=== PATIENT | male | born 1940 | race Caucasian/White ===

== ENCOUNTER 2022-09-09 13:56 | Inpatient (IN) | payer OTHER ==
[2022-09-09 16:39] VITALS: BMI 27.2
[2022-09-09] MEDS ORDERED: Dextrose 5% in Water 1,000 ML IV PRN (17:30)
[2022-09-09] MEDS ORDERED: Ondansetron PF 4 MG/2 ML Vial IVP PRN (17:30)
[2022-09-09] MEDS ORDERED: Acetaminophen 325 MG TAB PO PRN (17:30)
[2022-09-09] MEDS ORDERED: Dextrose 50% Abboject 50 ML SYRINGE SLOW IVP PRN (17:30)
[2022-09-09] MEDS: cefTRIAXone\\ROCEPHIN 1 GM in Sodium Chloride 0.9% 100 ML IVPB SCH (18:44)
[2022-09-09 18:51] LABS: Troponin I 0.047 ng/mL (< 0.028)
[2022-09-10 04:31] LABS: #Basophils 0.1 thou/uL (0.0-0.2); #Eosinphils 0.3 thou/uL (0.0-0.7); #Lymphocytes 1.5 thou/uL (1.20-3.40); #Monocytes 0.8 thou/uL (0.11-0.59); #Neutrophils 4.8 thou/uL (1.40-6.50); %Basophils 0.9 % (0.0-1.0); %Eosinophils 3.7 % (0.0-10.0); %Lymphocytes 19.9 % (21.0-51.0); %Monocytes 10.9 % (0.0-10.0); %Neutrophils 64.5 % (42.0-75.0); Mean Corpuscular HGB CONC 32.4 g/dL (32.0-36.0); Mean Corpuscular Hemoglobin 29.9 pg (27.0-31.0); Mean Corpuscular Volume 92.2 fl (78.0-98.0); Mean Platelet Volume 9.3 fL (7.4-10.4); Platelet Count 195 10x3/uL (130-400); RBC Distribution Width 13.4 % (11.5-14.5); Red Blood Cell (RBC) Count 4.01 mill/uL (4.70-6.10); White Blood Cell (WBC) Count 7.5 10x3/uL (4.8-10.8)
[2022-09-10 05:17] LABS: Anion Gap 13 mmol/L (10-20); BUN (Urea Nitrogen) 15 mg/dL (8.4-25.7); Calc. Creatinine Clearance 80 mL/min (70-130); Calcium 8.6 mg/dL (7.8-10.44); Carbon Dioxide 25 mmol/L (23-31); Chloride 104 mmol/L (98-107); Estimated GFR 88; Glucose 256 mg/dL (83-110); Potassium 3.9 mmol/L (3.5-5.1); Sodium 138 mmol/L (136-145)
[2022-09-10] MEDS ORDERED: FLU VACC QS2022-23(65YR UP)/PF 240 MCG/0.7 ML SYRINGE IM ONE (09:00)
[2022-09-10] MEDS ORDERED: HumaLOG 300 UNITS/3 ML VIAL SC PRN (09:19)
[2022-09-10] MEDS ORDERED: Spironolactone 25 MG TAB PO SCH (13:00)
[2022-09-10] MEDS: Carvedilol 6.25 MG TAB PO SCH (18:20)
[2022-09-10] MEDS: Dronedarone HCl 400 MG TAB PO SCH (18:21)
[2022-09-10] MEDS: cefTRIAXone\\ROCEPHIN 1 GM in Sodium Chloride 0.9% 100 ML IVPB SCH (18:21)
[2022-09-10] MEDS: Mometasone 100 MCG/PUFF (1 INHALER) INH SCH (18:26)
[2022-09-10] MEDS: Insulin NPH Human Isophane 100 UNIT/ML (10 ML VIAL) SC SCH (20:21)
[2022-09-10] MEDS: metFORMIN XR 500 MG TAB PO SCH (20:21)
[2022-09-10] MEDS: Apixaban 5 MG TAB PO SCH (20:21)
[2022-09-10] MEDS ORDERED: NPH, Human Insulin Isophane 300 UNIT/3 ML VIAL SC SCH (21:00)
[2022-09-11 00:36] LABS: Magnesium 1.7 mg/dL (1.6-2.6)
[2022-09-11 04:36] LABS: #Basophils 0.1 thou/uL (0.0-0.2); #Eosinphils 0.4 thou/uL (0.0-0.7); #Lymphocytes 1.7 thou/uL (1.20-3.40); #Monocytes 0.7 thou/uL (0.11-0.59); #Neutrophils 4.4 thou/uL (1.40-6.50); %Basophils 0.9 % (0.0-1.0); %Eosinophils 4.8 % (0.0-10.0); %Lymphocytes 23.5 % (21.0-51.0); %Neutrophils 60.7 % (42.0-75.0); Hemoglobin 11.9 g/dL (14.0-18.0); Mean Corpuscular HGB CONC 32.3 g/dL (32.0-36.0); Mean Corpuscular Hemoglobin 30.3 pg (27.0-31.0); Mean Corpuscular Volume 93.9 fl (78.0-98.0); Mean Platelet Volume 9.2 fL (7.4-10.4); Platelet Count 196 10x3/uL (130-400); RBC Distribution Width 13.5 % (11.5-14.5); Red Blood Cell (RBC) Count 3.93 mill/uL (4.70-6.10); White Blood Cell (WBC) Count 7.3 10x3/uL (4.8-10.8)
[2022-09-11 05:13] LABS: Anion Gap 12 mmol/L (10-20); BUN (Urea Nitrogen) 13 mg/dL (8.4-25.7); Calc. Creatinine Clearance 88 mL/min (70-130); Calcium 8.9 mg/dL (7.8-10.44); Carbon Dioxide 25 mmol/L (23-31); Cardiac Risk 2.8 (Less than 4.5); Chloride 105 mmol/L (98-107); Cholesterol 102 mg/dl (< 200 Desired); Estimated GFR 91; Glucose 170 mg/dL (83-110); HDL Cholesterol 37 mg/dL (>60 Neg Risk); LDL Cholesterol, Calculated 55 mg/dL; Potassium 3.7 mmol/L (3.5-5.1); Sodium 138 mmol/L (136-145); Triglycerides 50 mg/dL (Less than 150)
[2022-09-11] MEDS ORDERED: Ipratropium Bromide 2.5 ml Neb NEB SCH (07:00)
[2022-09-11] MEDS: Mometasone 100 MCG/PUFF (1 INHALER) INH SCH (07:22)
[2022-09-11] MEDS ORDERED: Ipratropium Bromide 2.5 ml Neb NEB PRN (07:36)
[2022-09-11] MEDS ORDERED: Spironolactone 25 MG TAB PO SCH (08:00)
[2022-09-11] MEDS ORDERED: Atorvastatin Calcium 40 MG TAB PO SCH (09:00)
[2022-09-11] MEDS ORDERED: Clopidogrel Bisulfate 75 MG TAB PO SCH (09:00)
[2022-09-11] MEDS ORDERED: Furosemide 40 MG TAB PO SCH (09:00)
[2022-09-11] MEDS ORDERED: DULoxetine 30 MG CAP PO SCH (09:00)
[2022-09-11] MEDS ORDERED: Lisinopril 5 MG TAB PO SCH (09:00)
[2022-09-11] MEDS: Apixaban 5 MG TAB PO SCH (09:13)
[2022-09-11] MEDS: metFORMIN XR 500 MG TAB PO SCH (09:13)
[2022-09-11] MEDS: Insulin NPH Human Isophane 100 UNIT/ML (10 ML VIAL) SC SCH (09:14)
[2022-09-11] MEDS: Dronedarone HCl 400 MG TAB PO SCH (09:14)
[2022-09-11] MEDS: Carvedilol 6.25 MG TAB PO SCH (09:16)
[2022-09-11 11:35] VITALS: BP 158/78; TEMP 97.5
[2022-09-11] MEDS ORDERED: Terazosin HCl 1 MG CAP PO SCH (21:00)
== END 2022-09-11 15:41 | DRG 308 ==
LOC: 2NO 16:01 → EEVIPCON 16:01
PROVIDERS: ADMIT Internal Medicine; ATTEND Family Medicine
DX: I48.0 Paroxysmal atrial fibrillation (principal); I50.31 Acute diastolic (congestive) heart failure; N39.0 Urinary tract infection, site not specified; I11.0 Hypertensive heart disease with heart failure; E11.649 Type 2 diabetes mellitus with hypoglycemia without coma; I25.10 Atherosclerotic heart disease of native coronary artery without angina pectoris; G47.33 Obstructive sleep apnea (adult) (pediatric); E78.5 Hyperlipidemia, unspecified; R77.8 Other specified abnormalities of plasma proteins; Z98.890 Other specified postprocedural states; Z86.73 Personal history of transient ischemic attack (TIA), and cerebral infarction without residual deficits; Z95.5 Presence of coronary angioplasty implant and graft; Z79.51 Long term (current) use of inhaled steroids; Z79.899 Other long term (current) drug therapy; Z79.84 Long term (current) use of oral hypoglycemic drugs; Z79.4 Long term (current) use of insulin; Z90.89 Acquired absence of other organs; Z95.0 Presence of cardiac pacemaker; Z79.02 Long term (current) use of antithrombotics/antiplatelets; Z79.01 Long term (current) use of anticoagulants; M19.90 Unspecified osteoarthritis, unspecified site
CPT/HCPCS: 36415; 36416; 80048; 80061; 83735; 84443; 85025; 87086; 93306; J0696; J1650; J1815; J3490

== ENCOUNTER 2022-10-02 23:43 | Emergency (ER) | payer OTHER ==
[2022-10-03 00:35] LABS: #Eosinphils 0.2 thou/uL (0.0-0.7); #Lymphocytes 0.9 thou/uL (1.20-3.40); #Monocytes 0.6 thou/uL (0.11-0.59); #Neutrophils 11.5 thou/uL (1.40-6.50); %Basophils 0.2 % (0.0-1.0); %Eosinophils 1.5 % (0.0-10.0); %Lymphocytes 6.4 % (21.0-51.0); %Monocytes 4.7 % (0.0-10.0); %Neutrophils 87.2 % (42.0-75.0); Hemoglobin 12.3 g/dL (14.0-18.0); Mean Corpuscular HGB CONC 33.7 g/dL (32.0-36.0); Mean Corpuscular Hemoglobin 31.4 pg (27.0-31.0); Mean Corpuscular Volume 93.1 fl (78.0-98.0); Mean Platelet Volume 9.1 fL (7.4-10.4); Platelet Count 178 10x3/uL (130-400); RBC Distribution Width 13.3 % (11.5-14.5); Red Blood Cell (RBC) Count 3.91 mill/uL (4.70-6.10); White Blood Cell (WBC) Count 13.2 10x3/uL (4.8-10.8)
[2022-10-03 00:55] LABS: PTT 29.3 sec (22.9-36.1); Prothrombin Time 23.1 sec (12.0-14.7)
[2022-10-03 00:57] LABS: Anion Gap 14 mmol/L (10-20); BUN (Urea Nitrogen) 25 mg/dL (8.4-25.7); Carbon Dioxide 27 mmol/L (23-31); Chloride 102 mmol/L (98-107); Potassium 3.5 mmol/L (3.5-5.1); Sodium 139 mmol/L (136-145)
[2022-10-03 00:58] LABS: ALT (SGPT) 13 U/L (8-55); AST (SGOT) 18 U/L (5-34); Albumin 3.6 g/dL (3.4-4.8); Alkaline Phosphatase 74 U/L (40-110); Bilirubin, Total 0.3 mg/dL (0.2-1.2); Calc. Creatinine Clearance 0 mL/min (70-130); Calcium 8.7 mg/dL (7.8-10.44); Estimated GFR 89; Globulin 3.1 g/dL (2.4-3.5); Glucose 132 mg/dL (83-110); Protein, Total 6.7 g/dL (5.8-8.1)
[2022-10-03] MEDS ORDERED: Lidocaine 1% w/Epinephrine 1:100K 20 ML VIAL ONE (01:27)
[2022-10-03] MEDS ORDERED: Boostrix 0.5 ML (Tdap) VIAL (>/=7 yrs of age) ONE (01:27)
[2022-10-03 02:35] LABS: Bacteria/HPF 3+ HPF (None Seen); Bilirubin Negative (Negative); Blood, Urine Negative (Negative); Clarity Clear (Clear); Glucose, Urine (Dipstick) 300 mg/dL (Negative); Ketone, Urine Negative (Negative); Leukocyte 500 Leu/uL (Negative); Nitrite Negative (Negative); Protein, Urine (Dipstick) Negative (Neg-Trace); RBC/HPF 0-3 HPF (0-3); Specific Gravity, Urine 1.018 (1.002-1.036); Squamous Epithelial 0-3 HPF (0-3); Urobilinogen Normal mg/dL (Less than 2); WBC/HPF Greater than 50 HPF (0-3); Yeast-Budding 1+ HPF (None Seen); pH, Urine 6.5 (5.0-9.0)
[2022-10-03] MEDS ORDERED: Bacitracin 1 PK ONE (03:14)
[2022-10-03] MEDS ORDERED: Morphine 4 MG/ML VIAL ONE (03:15)
[2022-10-03] MEDS ORDERED: cefTRIAXone (ROCEPHIN) 2 GM VIAL ONE (03:42)
[2022-10-03 06:35] LABS: SARS-CoV-2 NAA Rapid Test Not Detected (NotDetected)
[2022-10-03] MEDS ORDERED: traMADol HCl 50 MG TAB ONE (11:07)
== END 2022-10-03 12:05 | disposition short-term general hospital (02) ==
LOC: ERS 23:43
DX: S01.01XA Laceration without foreign body of scalp, initial encounter (principal); S12.9XXA Fracture of neck, unspecified, initial encounter; E11.65 Type 2 diabetes mellitus with hyperglycemia; W19.XXXA Unspecified fall, initial encounter; Z20.822 Contact with and (suspected) exposure to COVID-19; Z23 Encounter for immunization
CPT/HCPCS: 12001; 36415; 36416; 70450; 72125; 80053; 81003; 81015; 83605; 85025; 85610; 85730; 87040; 87077; 87086; 87186; 90471; 90715; 93005; 96365; 96375; J0696; J2270; U0002